=== PATIENT | female | born 1980 | race Caucasian/White ===

== ENCOUNTER 2016-11-25 16:56 | Observation (INO) | payer MEDICAID ==
[2016-11-25] MEDS ORDERED: Sodium Chloride 0.9% 1,000 ML IV STA (17:38)
--- NOTE | 2016-11-25 17:42 | ED PDOC ---
HPI: General Adult Time Seen by Provider: 11/25/16 17:25 Chief Complaint (Nursing): Abdominal Pain History Per: Patient Additional Complaint(s): Pt. states for the past month she's been having irregular BMs. States that she has been feeling constipated. Today symptoms worsened. Also reports noticing bright red blood with her green stool. Further state she's also been having rectal pain. Her BMs have been small and hard. Pt. states that her abdominal pain is localized to the RLQ. Denies N/V/D, melena, hematemesis, hx of anema, hx of GI bleed, fever, NSAID use. Past Medical History Reviewed: Historical Data, Nursing Documentation, Vital Signs Vital Signs: Last Vital Signs Temp 98.6 F 11/25/16 17:22 Pulse 79 11/25/16 17:22 Resp 18 11/25/16 17:22 BP 143/90 11/25/16 17:22 Pulse Ox 98 11/25/16 19:24 - Medical History PMH: Sickle Cell Disease (Sickle Cell Trait ) Denies: Chronic Kidney Disease - Surgical History Surgical History: ( x 1 (5 years ago)) - Family History Family History: States: No Known Family Hx - Home Medications Home Medications: Ambulatory Orders Medication Instructions Recorded Azithromycin [Zithromax Z-Ramiro] 250 mg PO DAILY #5 tab 06/07/14 Clarithromycin [Biaxin Xl] 500 mg PO BID #14 tab 08/07/14 Prednisone 20 mg PO BID #10 tab 08/07/14 Naproxen [Naprosyn Tab] 500 mg PO BID PRN #20 tab 05/19/15 Acetaminophen/Hydrocodone Bi 1 tab PO Q6 #10 tab 02/24/16 [Vicodin 300 mg-5 mg] Clindamycin [Cleocin] 300 mg PO TID 10 Days 02/24/16 Docusate Sodium [Colace] 100 mg PO BID PRN #30 capsule 11/25/16 Hydrocortisone 2.5% (Rectal) 1 applic [place] BID PRN #1 tube 11/25/16 [Anusol-HC] Polyethylene Glycol 3350 [Miralax] 17 gm PO DAILY PRN #30 powd.pack 11/25/16 - Allergies Allergies/Adverse Reactions: Allergies Allergy/AdvReac Type Severity Reaction Status Date / Time Penicillins Allergy RASH Verified 02/24/16 01:52 Review of Systems ROS Statement: Except As Marked, All Systems Reviewed And Found Negative Gastrointestinal: Positive for: Abdominal Pain, Constipation, Hematochezia, Rectal Pain Physical Exam - Reviewed Nursing Documentation Reviewed: Yes Vital Signs Reviewed: Yes - Physical Exam Appears: Positive for: Well, Non-toxic, No Acute Distress Head Exam: Positive for: ATRAUMATIC, NORMAL INSPECTION, NORMOCEPHALIC Skin: Positive for: Normal Color, Warm. Negative for: Rash Eye Exam: Positive for: EOMI, Normal appearance, PERRL ENT: Positive for: Normal ENT Inspection Neck: Positive for: Normal, Painless ROM Cardiovascular/Chest: Positive for: Regular Rate, Rhythm Respiratory: Positive for: CNT, Normal Breath Sounds Gastrointestinal/Abdominal: Positive for: Normal Exam, Bowel Sounds, Soft. Negative for: Tenderness Back: Positive for: Normal Inspection Rectal: Positive for: Rectal Tone Is: (intact), Hemorrhoids (non-thrombosed at 12 o'clock position), Other (Merari RN present as in service educator during entire rectal exam). Negative for: Black Stool, Blood Streaked Stool, Mass Extremity: Positive for: Normal ROM Neurologic/Psych: Positive for: Alert, Oriented - Laboratory Results Result Diagrams: 11/25/16 18:10 11/25/16 18:10 - ECG O2 Sat by Pulse Oximetry: 98 ED OBSERVATION Discharge: Yes Date of observation admission: 11/25/16 Time of observation admission: 17:43 - Observation admission statement Patient is being placed in observation because:: Abdominal pain, constipation - Progress Note Progress Note: 11/25/16 17:44 Labs ordered. Abd x-ray ordered. IV NS bolus given. 11/25/16 19:22 Abd remains soft and non-tender to deep palpation. Negative Psoas and Obturator sign. Abd x-ray: no obstruction Toradol 15mg IV given. Pt. instructed to increase fiber intake and to f/u with [facility] for further evaluation. Also told to do sitz baths. Disposition - Clinical Impression Clinical Impression: Constipation - Patient ED Disposition Is Patient to be Admitted: No - Disposition Disposition: Routine/Home Disposition Time: 19:24 Condition: IMPROVED
[2016-11-25 18:19] LABS: SQUAMOUS EPITHIAL 1 /hpf (0-5); URINE BILIRUBIN NEGATIVE (NEGATIVE); URINE BLOOD NEGATIVE (NEGATIVE); URINE CLARITY SLIGHTY-CLOUDY (Clear); URINE COLOR YELLOW (YELLOW); URINE GLUCOSE (UA) NEG (Normal); URINE LEUKOCYTE ESTERASE NEG Leu/uL (Negative); URINE NITRATE NEGATIVE (NEGATIVE); URINE PROTEIN NEGATIVE (NEGATIVE); URINE UROBILINOGEN 0.2-1.0 mg/dL (0.2-1.0)
[2016-11-25 18:27] LABS: BASO % 0.4 % (0.0-2.0); EOS # 0.1 K/uL (0.0-0.7); HEMOGLOBIN 13.3 g/dL (12.0-16.0); LYMPH # 2.3 K/uL (1.0-4.3); LYMPH % 22.2 % (20.0-40.0); MEAN CELL VOLUME 94.5 fl (81.0-99.0); MEAN CORPUSCULAR HEMOGLOBIN 32.1 pg (27.0-31.0); MEAN PLATELET VOLUME 8.9 fl (7.2-11.7); MONO # 0.5 K/uL (0.0-0.8); MONO % 4.5 % (0.0-10.0); NEUT # 7.5 K/uL (1.8-7.0); NEUT % 71.9 % (50.0-75.0); RBC 4.14 Mil/uL (3.80-5.20); RED CELL DISTRIBUTION WIDTH 12.9 % (11.5-14.5); WHITE BLOOD COUNT 10.4 K/uL (4.8-10.8)
[2016-11-25 18:38] LABS: ALB/GLOB RATIO 1.3 (1.0-2.1); ALBUMIN 4.5 g/dL (3.5-5.0); ALT/SGPT 42 U/L (9-52); AST/SGOT 22 U/L (14-36); BLOOD UREA NITROGEN 7 mg/dl (7-17); CALCIUM 9.3 mg/dL (8.4-10.2); GFR AFRICAN-AMERICAN > 60; GFR NON-AFRICAN AMERICAN > 60
[2016-11-25 18:42] LABS: INR 1.2 (0.9-1.2); PARTIAL THROMBOPLASTIN TIME 30.6 Seconds (25.6-37.1); PROTHROMBIN TIME 13.2 Seconds (9.8-13.1)
[2016-11-25 19:41] VITALS: BP 134/75; PULSE 71; RESP 16; TEMP 97.9; O2SAT 100
--- NOTE | 2016-11-26 09:39 | RAD ---
HISTORY: abdominal pain COMPARISON: Comparison is made to 05/19/2015 FINDINGS: BOWEL: Normal. No obstruction. No free air. BONES: Normal. OTHER FINDINGS: No evidence of acute pathology in the lungs. No evidence of pleural effusion or pneumothorax. No radiographic evidence of subdiaphragmatic free air. IMPRESSION: Loci-ld-ijcwjina constipation. No evidence of acute pulmonary disease.
== END 2016-11-25 19:56 | disposition left against medical advice (07) ==
LOC: H.ER 16:56 → H.EROBSV 17:38
PROVIDERS: ADMIT Emergency Medicine; ATTEND Emergency Medicine
DX: K59.00 Constipation, unspecified (principal); K92.1 Melena; K64.9 Unspecified hemorrhoids; Z88.0 Allergy status to penicillin; D57.3 Sickle-cell trait

== ENCOUNTER 2017-05-22 18:08 | Emergency (ER) | payer MEDICAID ==
[2017-05-22 18:14] VITALS: BP 143/100; PULSE 98; RESP 16; TEMP 98.3; O2SAT 100
--- NOTE | 2017-05-22 18:30 | ED PDOC ---
HPI: General Adult Time Seen by Provider: 05/22/17 18:16 Chief Complaint (Nursing): Flu-like Symptoms Chief Complaint (Provider): Flu History Per: Patient Additional Complaint(s): 37 yo female, no PMH, presents to ED with Complaints of flu like symptoms beginning yesterday. Pt notes fever, chills, sore throat and generalized body aches. dry cough as well. Past Medical History Reviewed: Nursing Documentation, Vital Signs Vital Signs: Last Vital Signs Temp 98.3 F 05/22/17 18:12 Pulse 98 H 05/22/17 18:12 Resp 16 05/22/17 18:12 BP 143/100 H 05/22/17 18:12 Pulse Ox 100 05/22/17 18:30 - Medical History PMH: No Chronic Diseases, Sickle Cell Disease (Sickle Cell Trait ) Denies: Chronic Kidney Disease - Surgical History Surgical History: ( x 1 (5 years ago)) - Family History Family History: States: Unknown Family Hx - Living Arrangements Living Arrangements: With Family - Social History Current smoker - smoking cessation education provided: No Alcohol: None Drugs: Denies - Home Medications Home Medications: Ambulatory Orders Medication Instructions Recorded Azithromycin [Zithromax Z-Ramiro] 250 mg PO DAILY #5 tab 06/07/14 Clarithromycin [Biaxin Xl] 500 mg PO BID #14 tab 08/07/14 Prednisone 20 mg PO BID #10 tab 08/07/14 Naproxen [Naprosyn Tab] 500 mg PO BID PRN #20 tab 05/19/15 Acetaminophen/Hydrocodone Bi 1 tab PO Q6 #10 tab 02/24/16 [Vicodin 300 mg-5 mg] Clindamycin [Cleocin] 300 mg PO TID 10 Days cap 02/24/16 Docusate Sodium [Colace] 100 mg PO BID PRN #30 capsule 11/25/16 Hydrocortisone 2.5% (Rectal) 1 applic [place] BID PRN #1 tube 11/25/16 [Anusol-HC] Polyethylene Glycol 3350 [Miralax] 17 gm PO DAILY PRN #30 powd.pack 11/25/16 Oseltamivir Phosphate [Tamiflu] 75 mg PO BID 5 Days capsule 05/22/17 - Allergies Allergies/Adverse Reactions: Allergies Allergy/AdvReac Type Severity Reaction Status Date / Time Penicillins Allergy RASH Verified 02/24/16 01:52 Review of Systems ROS Statement: Except As Marked, All Systems Reviewed And Found Negative Constitutional: Positive for: Fever, Chills ENT: Positive for: Nose Congestion, Throat Pain Physical Exam - Reviewed Nursing Documentation Reviewed: Yes Vital Signs Reviewed: Yes - Physical Exam Appears: Positive for: Well, Non-toxic, No Acute Distress Head Exam: Positive for: ATRAUMATIC, NORMAL INSPECTION, NORMOCEPHALIC Skin: Positive for: Normal Color, Warm, DRY Eye Exam: Positive for: EOMI, Normal appearance, PERRL ENT: Positive for: Normal ENT Inspection Neck: Positive for: Normal, Painless ROM Cardiovascular/Chest: Positive for: Regular Rate, Rhythm Respiratory: Positive for: CNT, Normal Breath Sounds Gastrointestinal/Abdominal: Positive for: Normal Exam, Bowel Sounds, Soft Back: Positive for: Normal Inspection Extremity: Positive for: Normal ROM Neurologic/Psych: Positive for: Alert, Oriented - ECG O2 Sat by Pulse Oximetry: 100 Medical Decision Making Medical Decision Making: CXR: NAD, as read by KAZ Flu (+) Pt instructed on flu, as well as supportive care. Tamiflu RX prescribed. given work note for 1 week. advised to return to ED if at anytime condition worsens Disposition - Clinical Impression Clinical Impression: Influenza - Patient ED Disposition Is Patient to be Admitted: No - Disposition Disposition: Routine/Home Disposition Time: 20:04 Condition: STABLE Prescriptions: Oseltamivir Phosphate [Tamiflu] 75 mg PO BID 5 Days capsule Instructions: Influenza (ED) Forms: [employer] (Faroese)
--- NOTE | 2017-05-23 11:05 | RAD ---
HISTORY: fevef and cough COMPARISON: Complete abdomen series with chest 11/25/2016. TECHNIQUE: Chest PA and lateral FINDINGS: LUNGS: No active pulmonary disease. PLEURA: No significant pleural effusion identified. No pneumothorax apparent. CARDIOVASCULAR: Normal. OSSEOUS STRUCTURES: No significant abnormalities. VISUALIZED UPPER ABDOMEN: Normal. OTHER FINDINGS: None. IMPRESSION: No interval acute cardiopulmonary disease appreciated.
== END 2017-05-22 20:00 | disposition home or self-care (01) ==
LOC: H.ER 18:08
DX: J11.1 Influenza due to unidentified influenza virus with other respiratory manifestations (principal); Z88.0 Allergy status to penicillin

== ENCOUNTER 2017-07-03 12:26 | Emergency (ER) | payer MEDICAID ==
[2017-07-03 12:37] VITALS: BP 146/95; PULSE 89; RESP 19; TEMP 98; O2SAT 98
[2017-07-03] MEDS ORDERED: Morphine 4 MG/ML VIAL IV STA (13:39)
[2017-07-03] MEDS ORDERED: Morphine 4 MG/ML VIAL ONE (13:50)
[2017-07-03 13:56] LABS: BASO # 0.1 K/uL (0.0-0.2); BASO % 0.6 % (0.0-2.0); EOS # 0.1 K/uL (0.0-0.7); EOS % 1.3 % (0.0-4.0); HEMOGLOBIN 12.5 g/dL (12.0-16.0); LYMPH # 2.2 K/uL (1.0-4.3); LYMPH % 22.1 % (20.0-40.0); MEAN CELL VOLUME 96.1 fl (81.0-99.0); MEAN CORPUSCULAR HEMOGLOBIN 32.3 pg (27.0-31.0); MEAN CORPUSCULAR HGB CONC 33.6 g/dL (33.0-37.0); MEAN PLATELET VOLUME 8.9 fl (7.2-11.7); MONO # 0.6 K/uL (0.0-0.8); MONO % 6.4 % (0.0-10.0); NEUT # 6.8 K/uL (1.8-7.0); NEUT % 69.6 % (50.0-75.0); NRBC % 0.1 % (0.0-0.0); RBC 3.87 Mil/uL (3.80-5.20); RED CELL DISTRIBUTION WIDTH 13.9 % (11.5-14.5); WHITE BLOOD COUNT 9.8 K/uL (4.8-10.8)
[2017-07-03 14:07] LABS: ALB/GLOB RATIO 1.1 (1.0-2.1); ALBUMIN 3.8 g/dL (3.5-5.0); ALT/SGPT 26 U/L (9-52); AST/SGOT 19 U/L (14-36); BLOOD UREA NITROGEN 11 mg/dl (7-17); CALCIUM 8.9 mg/dL (8.4-10.2); GFR AFRICAN-AMERICAN > 60; GFR NON-AFRICAN AMERICAN > 60
[2017-07-03] MEDS ORDERED: Iodixanol 320 MG/ML 100 ML BOTTLE IV ONE (14:21)
[2017-07-03 14:23] LABS: PROTHROMBIN TIME 11.6 Seconds (9.8-13.1)
[2017-07-03 14:24] LABS: PARTIAL THROMBOPLASTIN TIME 31.2 Seconds (25.6-37.1)
--- NOTE | 2017-07-03 14:32 | ED PDOC ---
HPI: Chest Pain Time Seen by Provider: 07/03/17 12:41 Chief Complaint (Nursing): Chest Pain Chief Complaint (Provider): R sided CP History Per: Patient History/Exam Limitations: no limitations Onset/Duration Of Symptoms: Days (2) Current Symptoms Are (Timing): Still Present Additional Complaint(s): Pt reports R sided CP that starts under breast and radiates to R back, constant. Denies fever, cough, SOB, palpitations. Past Medical History Reviewed: Nursing Documentation, Vital Signs Vital Signs: Last Vital Signs Temp 98 F 07/03/17 12:35 Pulse 89 07/03/17 12:35 Resp 19 07/03/17 12:35 BP 146/95 H 07/03/17 12:35 Pulse Ox 98 07/03/17 15:40 - Medical History PMH: Sickle Cell Disease (Sickle Cell Trait ) Denies: Chronic Kidney Disease - Surgical History Surgical History: ( x 1 (5 years ago)) - Family History Family History: States: Unknown Family Hx - Social History Current smoker - smoking cessation education provided: Yes Alcohol: None - Home Medications Home Medications: Ambulatory Orders Medication Instructions Recorded Azithromycin [Zithromax Z-Ramiro] 250 mg PO DAILY #5 tab 06/07/14 Clarithromycin [Biaxin Xl] 500 mg PO BID #14 tab 08/07/14 Prednisone 20 mg PO BID #10 tab 08/07/14 Naproxen [Naprosyn Tab] 500 mg PO BID PRN #20 tab 05/19/15 Acetaminophen/Hydrocodone Bi 1 tab PO Q6 #10 tab 02/24/16 [Vicodin 300 mg-5 mg] Clindamycin [Cleocin] 300 mg PO TID 10 Days cap 02/24/16 Docusate Sodium [Colace] 100 mg PO BID PRN #30 capsule 11/25/16 Hydrocortisone 2.5% (Rectal) 1 applic [place] BID PRN #1 tube 11/25/16 [Anusol-HC] Polyethylene Glycol 3350 [Miralax] 17 gm PO DAILY PRN #30 powd.pack 11/25/16 Oseltamivir Phosphate [Tamiflu] 75 mg PO BID 5 Days capsule 05/22/17 Naproxen [Naprosyn] 500 mg PO BID PRN #15 tablet 07/03/17 - Allergies Allergies/Adverse Reactions: Allergies Allergy/AdvReac Type Severity Reaction Status Date / Time Penicillins Allergy RASH Verified 07/03/17 12:37 CEE Risk Score for UA/NSTEMI - CEE Risk Score Age > 64: NO 3 or more CAD Risk Factors: NO Known CAD (Stenosis greater than 50%): NO Aspirin use in past 7 days: NO Severe Angina: NO EKG ST changes greater than 0.5mm: NO Positive Cardiac Marker: NO CEE Score: 0 Risk %: 5% Wells Criteria for PE - Wells Criteria for Pulmonary Embolism Clinical Signs and Symptoms of DVT: No P.E is #1 Diagnosis, or Equally Likely: No Heart Rate >100: No Immobilization at least 3 days;Surgery previous 4 weeks: No Previous, objectively diagnosed PE or DVT: No Hemoptysis: No Malignancy w/treatment within 6 months, or palliative: No Total Score: 0 Review of Systems Constitutional: Negative for: Fever, Chills Cardiovascular: Positive for: Chest Pain (R sided). Negative for: Palpitations Respiratory: Negative for: Cough, Shortness of Breath, SOB with Exertion, Pleuritic Pain, Sputum, Wheezing Gastrointestinal: Negative for: Nausea, Abdominal Pain, Diarrhea Genitourinary Female: Negative for: Dysuria, Hematuria Musculoskeletal: Positive for: Back Pain. Negative for: Neck Pain Skin: Negative for: Rash, Lesions Neurological: Negative for: Weakness, Numbness, Headache, Dizziness Physical Exam - Reviewed Nursing Documentation Reviewed: Yes Vital Signs Reviewed: Yes - Physical Exam Appears: Positive for: Uncomfortable Head Exam: Positive for: ATRAUMATIC, NORMAL INSPECTION Skin: Positive for: Normal Color, Warm, Dry Eye Exam: Positive for: Normal appearance, EOMI, PERRL Neck: Positive for: Normal, Painless ROM, Supple Cardiovascular/Chest: Positive for: Regular Rate, Rhythm. Negative for: Chest Non Tender (TTP R chest wall) Respiratory: Positive for: Normal Breath Sounds. Negative for: Rales, Rhonchi, Wheezing Gastrointestinal/Abdominal: Positive for: Normal Exam, Bowel Sounds, Soft Back: Positive for: Normal Inspection. Negative for: L CVA Tenderness, R CVA Tenderness Extremity: Positive for: Normal ROM. Negative for: Calf Tenderness, Swelling Neurologic/Psych: Positive for: Alert, Oriented - Laboratory Results Result Diagrams: 07/03/17 13:40 07/03/17 13:40 - ECG Interpretation Of ECG: NSR @ 86, no ST-T changes. O2 Sat by Pulse Oximetry: 98 Pulse Ox Interpretation: Normal - Radiology X-Ray: Interpreted by Ar X-Ray Interpretation: No Acute Disease Medical Decision Making Medical Decision Makin yo female with R sided CP. - labs - EKG - CXR - CT chest - Morphine Accession No. : [id number] Patient Name / ID : GEMINI HALL / [id number] Exam Date : 07/03/2017 14:56:37 ( Approved ) Study Comment : Sex / Age : F / 37Y Creator : Francis Aguirre MD Dictator : Francis Aguirre MD Patrol Supervisor : Auto Body Service Mechanic : Francis Aguirre MD Approver2 : Report Date : 07/03/2017 15:24:51 My Comment : PROCEDURE: CT Chest with contrast (Pulmonary Angiogram) HISTORY: R sided CP COMPARISON: None available. TECHNIQUE: Axial computed tomography images were obtained of the chest in the pulmonary arterial phase of enhancement. Coronal and sagittal reformatted images were created and reviewed. Intravenous contrast dose: Visipaque 320, 99 cc Radiation dose: Total exam DLP = 469.09 mGy-cm. This CT exam was performed using one or more of the following dose reduction techniques: Automated exposure control, adjustment of the mA and/or kV according to patient size, and/or use of iterative reconstruction technique. FINDINGS: PULMONARY ARTERIES: Unremarkable. No pulmonary embolism. AORTA: No acute findings. No thoracic aortic aneurysm. LUNGS: Unremarkable. No nodule, mass or pulmonary consolidation. PLEURAL SPACES: Unremarkable. No effusion or pneuomothorax. HEART: Unremarkable. No cardiomegaly. No significant pericardial effusion. LYMPH NODES: No lymphadenopathy. BONES, CHEST WALL: Unremarkable. No fracture or destructive lesion OTHER FINDINGS: Unremarkable. IMPRESSION: Unremarkable CT pulmonary angiogram. No evidence to suggest pulmonary embolus bilaterally. No infiltrate, pleural or pericardial effusion, pneumothorax or definitive mass. Disposition - Clinical Impression Clinical Impression: Right-sided chest pain - Disposition Referrals: [facility] [Outside] Disposition: Routine/Home Disposition Time: 16:24 Condition: IMPROVED Prescriptions: Naproxen [Naprosyn] 500 mg PO BID PRN #15 tablet PRN Reason: Pain, Moderate (4-7) Instructions: Chest Pain Forms: [employer] (Colombian)
--- NOTE | 2017-07-03 15:26 | CT ---
PROCEDURE: CT Chest with contrast (Pulmonary Angiogram) HISTORY: R sided CP COMPARISON: None available. TECHNIQUE: Axial computed tomography images were obtained of the chest in the pulmonary arterial phase of enhancement. Coronal and sagittal reformatted images were created and reviewed. Intravenous contrast dose: Visipaque 320, 99 cc Radiation dose: Total exam DLP = 469.09 mGy-cm. This CT exam was performed using one or more of the following dose reduction techniques: Automated exposure control, adjustment of the mA and/or kV according to patient size, and/or use of iterative reconstruction technique. FINDINGS: PULMONARY ARTERIES: Unremarkable. No pulmonary embolism. AORTA: No acute findings. No thoracic aortic aneurysm. LUNGS: Unremarkable. No nodule, mass or pulmonary consolidation. PLEURAL SPACES: Unremarkable. No effusion or pneuomothorax. HEART: Unremarkable. No cardiomegaly. No significant pericardial effusion. LYMPH NODES: No lymphadenopathy. BONES, CHEST WALL: Unremarkable. No fracture or destructive lesion OTHER FINDINGS: Unremarkable. IMPRESSION: Unremarkable CT pulmonary angiogram. No evidence to suggest pulmonary embolus bilaterally. No infiltrate, pleural or pericardial effusion, pneumothorax or definitive mass.
--- NOTE | 2017-07-03 16:30 | RAD ---
HISTORY: R sided CP COMPARISON: Chest radiographs 05/22/2015 TECHNIQUE: Chest PA and lateral FINDINGS: LUNGS: No active pulmonary disease. PLEURA: No significant pleural effusion identified. No pneumothorax apparent. CARDIOVASCULAR: Normal. OSSEOUS STRUCTURES: No significant abnormalities. VISUALIZED UPPER ABDOMEN: Normal. OTHER FINDINGS: None. IMPRESSION: No interval acute cardiopulmonary disease appreciated.
--- NOTE | 2017-07-04 21:22 | CARD ---
APPROVED REPORT EKG Measurement Heart [id number] <Conclusion> Normal sinus rhythm Septal infarct, age undetermined Abnormal ECG
== END 2017-07-03 16:25 | disposition home or self-care (01) ==
LOC: H.ER 12:26
DX: R07.89 Other chest pain (principal); D57.3 Sickle-cell trait; Z88.0 Allergy status to penicillin; F17.200 Nicotine dependence, unspecified, uncomplicated
CPT/HCPCS: 71046; 71275; 80053; 81025; 85025; 85378; 85610; 85730; 93005; 96374; 96375; 99283; J1885; J2270; Q9967

== ENCOUNTER 2018-08-07 19:26 | Emergency (ER) | payer MEDICAID ==
[2018-08-07 19:27] VITALS: BMI 165.3
--- NOTE | 2018-08-07 21:02 | ED PDOC ---
History of Present Illness History of Present Illness: 38yo female, otherwise well, with no past medical history, comes to ER reporting 1 day of cough, congestion, and chills. She reports an episode of dizziness earlier today, prompting her ER visit. 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 Otherwise, no measured fever, chest pain, shortness of breath, nausea, vomiting, or abdominal pain. Patient took Theraflu this morning with minimal relief. No additional complaints. PMD: Deb Weston HPI: Influenza Time Seen by Provider: 08/07/18 20:40 Chief Complaint: Cough, Cold, Congestion Chief Complaint (Provider): Cough, nasal congestion History Per: Patient Exam Limitations: no limitations Onset/Duration Of Symptoms: Days Symptoms include: cough, nasal congestion. denies: vomiting, diarrhea, chest pain Sick Contacts (Context): Individual(s) At Work (works at daycare) Past Medical History Reviewed: Historical Data, Nursing Documentation, Vital Signs Vital Signs: Last Vital Signs Temp 99.7 F H 08/07/18 20:23 Pulse 99 H 08/07/18 20:23 Resp 18 08/07/18 20:23 BP 146/88 08/07/18 20:23 Pulse Ox 100 08/07/18 20:23 - Medical History PMH: No Chronic Diseases, Sickle Cell Disease (Sickle Cell Trait ) Denies: Chronic Kidney Disease - Surgical History Surgical History: ( x 1 (5 years ago)) - Family History Family History: States: No Known Family Hx - Social History Current smoker - smoking cessation education provided: No Alcohol: None Drugs: Denies - Immunization History Hx Tetanus Toxoid Vaccination: No Hx Influenza Vaccination: No Hx Pneumococcal Vaccination: No - Home Medications Home Medications: Ambulatory Orders Medication Instructions Recorded Azithromycin [Zithromax Z-Ramiro] 250 mg PO DAILY #5 tab 06/07/14 Clarithromycin [Biaxin Xl] 500 mg PO BID #14 tab 08/07/14 Prednisone 20 mg PO BID #10 tab 08/07/14 Naproxen [Naprosyn Tab] 500 mg PO BID PRN #20 tab 05/19/15 Acetaminophen/Hydrocodone Bi 1 tab PO Q6 #10 tab 02/24/16 [Vicodin 300 mg-5 mg] Clindamycin [Cleocin] 300 mg PO TID 10 Days cap 02/24/16 Docusate Sodium [Colace] 100 mg PO BID PRN #30 capsule 11/25/16 Hydrocortisone 2.5% (Rectal) 1 applic [place] BID PRN #1 tube 11/25/16 [Anusol-HC] Polyethylene Glycol 3350 [Miralax] 17 gm PO DAILY PRN #30 powd.pack 11/25/16 Oseltamivir Phosphate [Tamiflu] 75 mg PO BID 5 Days capsule 05/22/17 Naproxen [Naprosyn] 500 mg PO BID PRN #15 tablet 07/03/17 Ibuprofen [Ibu] 400 mg PO Q4 PRN #20 tablet 08/07/18 Oseltamivir Phosphate [Tamiflu] 75 mg PO BID 5 Days #10 capsule 08/07/18 Pseudoephedrine HCl [Sudafed] 30 mg PO Q4 PRN #12 tablet 08/07/18 - Allergies Allergies/Adverse Reactions: Allergies Allergy/AdvReac Type Severity Reaction Status Date / Time Penicillins Allergy RASH Verified 08/07/18 20:23 Review of Systems ROS Statement: Except As Marked, All Systems Reviewed And Found Negative Constitutional: Positive for: Chills ENT: Positive for: Nose Congestion Cardiovascular: Negative for: Chest Pain Respiratory: Positive for: Cough. Negative for: Shortness of Breath Gastrointestinal: Negative for: Nausea, Vomiting, Abdominal Pain Physical Exam - Reviewed Nursing Documentation Reviewed: Yes Vital Signs Reviewed: Yes - Physical Exam Comments: GENERAL APPEARANCE: Patient is awake, alert, oriented x 3, in no acute distress. SKIN: Warm, dry; (-) cyanosis. EYES: (+) mild conjunctival injection. ENMT: Mucous membranes moist. Airway patent: (-) stridor. Pharynx: (-) swelling, (-) erythema, (-) exudate. (+) Nasal congestion NECK: (-) tenderness, (-) stiffness, (-) lymphadenopathy. CHEST AND RESPIRATORY: (-) rhonchi, (-) rales, (-) wheezes, (-) pleural rub; breath sounds equal bilaterally. HEART AND CARDIOVASCULAR: (-) irregularity; (-) murmur, (-) gallop. ABDOMEN AND GI: Soft; (-) tenderness. EXTREMITIES: (-) deformity; (-) edema. NEURO AND PSYCH: Mental status as above. Cranial nerves grossly intact; strength symmetric. Medical Decision Making Medical Decision Makinyo w/ URI symptoms, r/o flu Plan: -- Rapid flu -- Motrin 600mg PO -- Sudafed 60mg PO pt flu A positive, tamiflu PO ordered as pt is within 24 hours of symptoms on re eval pt is feeling better, tolerating PO, no respiratory distress, lungs are clear discussed results, diagnosis, treatment, retrun precautions and f/u with pt who is understanding, in agreement and stable for dc Scribe Attestation: Documented by Emily Simons, acting as a scribe for CARLOS ALBERTO Carrero. Provider Scribe Attestation: All medical record entries made by the Scribe were at my direction and personally dictated by me. I have reviewed the chart and agree that the record accurately reflects my personal performance of the history, physical exam, medical decision making, and the department course for this patient. I have also personally directed, reviewed, and agree with the discharge instructions and disposition. - ECG O2 Sat by Pulse Oximetry: 100 Disposition - Clinical Impression Clinical Impression: Influenza A - Patient ED Disposition Is Patient to be Admitted: No Counseled Patient/Family Regarding: Studies Performed, Diagnosis, Need For Followup, Rx Given - Disposition Referrals: Deb Weston MD [Medical Doctor] - Disposition: Routine/Home Disposition Time: 22:51 Condition: IMPROVED Additional Instructions: Return to ED for new or worsening symptoms, fever not controlled with Tylenol or Ibuprofen, difficulty breathing or swallowing, chest pain, unable to tolerate liquids. Follow up with your primary care doctor in 3-5 days. Take medications as prescribed. The flu is a viral illness that last 7-10 days and treated symptomatically. Alternate between Tylenol and Ibuprofen for fever and pain. Rest, drink plenty of fluids to stay hydrated. Good hand washing. Prescriptions: Ibuprofen [Ibu] 400 mg PO Q4 PRN #20 tablet PRN Reason: Fever >100.4 F Oseltamivir Phosphate [Tamiflu] 75 mg PO BID 5 Days #10 capsule Pseudoephedrine HCl [Sudafed] 30 mg PO Q4 PRN #12 tablet PRN Reason: Nasal Congestion Instructions: Flu, Adult (DC) Forms: [employer] (Turkish), [facility] School/Work Excuse Print Language: SLOVAK - POA Present On Arrival: None
[2018-08-07 23:08] VITALS: BP 116/81; PULSE 80; RESP 16; TEMP 98.1
[2018-08-08 12:29] VITALS: O2SAT 100
== END 2018-08-07 23:13 | disposition home or self-care (01) ==
LOC: H.ER 19:26
DX: J09.X2 Influenza due to identified novel influenza A virus with other respiratory manifestations (principal)